=== PATIENT | female | born 1950 | race Caucasian/White ===

== ENCOUNTER 2020-11-03 11:40 | Emergency (ER) | payer MEDICARE ==
[~2020-11-03] VITALS: Wt 79.4 kg
[~2020-11-03 11:40] MED LIST: NEXIUM20 MG PO
[2020-11-03] MEDS ORDERED: NIFEDIPINE ER30 M1 PO (11:53)
[2020-11-03] MEDS ORDERED: LATANOPROST 0.7.5 ML OP (11:53)
[2020-11-03] MEDS ORDERED: PRAVASTATIN SOD20 MG PO (11:53)
[2020-11-03] MEDS ORDERED: MONTELUKAST SOD10 MG PO (11:54)
[2020-11-03] MEDS ORDERED: TRIAMTERENE-HC1 EACH PO (11:54)
[2020-11-03 12:36] LABS: BASO % 0.2 % (0.0-1.0); HEMATOCRIT 25.2 % (37.0-47.0); LYMPH # 2.4 10*3/uL (1.3-4.4); LYMPH % 11.9 % (27.0-41.0); MEAN CELL VOLUME 88.7 fl (81.0-99.0); MEAN CORPUSCULAR HGB 29.9 pg (27.0-31.0); MEAN CORPUSCULAR HGB CONC 33.7 g/dl (33.0-37.0); MEAN PLATELET VOLUME 11.6 fl (9.6-12.3); MONO # 0.9 10*3/uL (0.1-1.0); MONO % 4.5 % (3.0-9.0); NEUT # 16.4 10*3/uL (2.3-7.9); NEUT % 82.4 % (47.0-73.0); PLATELET COUNT AUTOMATED 344 10*3/uL (130-400); RED BLOOD COUNT 2.84 10*6/uL (4.10-5.10); RED CELL DISTRI WIDTH 13.6 % (0-14.5); WHITE BLOOD COUNT 19.9 10*3/uL (4.8-10.8)
[2020-11-03 12:56] LABS: ALBUMIN 2.9 gm/dl (3.1-4.5); CREATININE 2.28 mg/dL (0.55-1.02); POTASSIUM 3.8 mmol/L (3.5-5.1); TOTAL PROTEIN 6.2 gm/dL (6.4-8.2)
[2020-11-03 12:59] LABS: TROPONIN I 0.059 ng/ml (<0.045)
[2020-11-03 13:57] LABS: BILIRUBIN Negative (Negative); BLOOD Negative (Negative); CLARITY Cloudy (Clear); COLOR Dark Yellow (Yellow); GLUCOSE Negative (Negative); KETONE Trace (Negative); LEUKO ESTERASE Negative (Negative); NITRITE Negative (Negative)
[2020-11-03 14:09] LABS: EPITHELIAL CELLS 21-30; RBC 0-2 rbc/hpf (0-2)
[2020-11-03 14:10] LABS: BACTERIA 2+; MUCOUS TRACE
== END 2020-11-03 20:35 | disposition short-term general hospital (02) ==
LOC: ED 11:40
PROVIDERS: Emergency Medicine
DX: A41.9 Sepsis, unspecified organism (principal); R65.20 Severe sepsis without septic shock; R19.09 Other intra-abdominal and pelvic swelling, mass and lump; Z79.899 Other long term (current) drug therapy